=== PATIENT | female | born 1950 | race African-American/Black ===

== ENCOUNTER 2017-09-16 16:00 | Emergency (ER) | payer MEDICARE, MEDICAID, OTHER ==
[2017-09-16] MEDS: HYDROcodone/APAP 5/325MG 1 TAB TABLET PO ×2 (16:31)
== END 2017-09-16 17:13 | disposition home or self-care (01) ==
LOC: ER 16:00
DX: M17.11 Unilateral primary osteoarthritis, right knee (principal); I10 Essential (primary) hypertension; Z90.49 Acquired absence of other specified parts of digestive tract; Z90.710 Acquired absence of both cervix and uterus
CPT/HCPCS: 73562; 99284

== ENCOUNTER → 2018-05-17 | Outpatient (CLI) | payer MEDICAID, MEDICARE ==
[2017-09-16 16:20] VITALS: BP 157/72
[~2018-05-17] MED LIST: HYDR-971 PO; LOSA50TA7 PO
--- NOTE | 2018-05-17 15:31 | RAD ---
DATE: 05/17/2018 EXAM: MAMMO TERRELL SCREENING BILATERAL HISTORY: Previous right breast cancer COMPARISON: 05/04/2017 This study was interpreted with the benefit of Computerized Aided Detection (CAD). Breast Density: SCATTERED The breast parenchyma shows scattered fibroglandular densities. Breast parenchyma level B. FINDINGS: 2-D and 3-D tomosynthesis imaging was performed in CC and MLO projections. The breasts are asymmetric due to posttherapeutic change on the right. The right breast is smaller with scattered increased densities and mild skin thickening. Mild architectural distortion laterally on the right is presumably postsurgical. No new or enlarging breast densities are seen. There is an unchanged smooth benign-appearing nodule present posterolaterally on the left. Scattered benign type calcifications are present. No suspicious microcalcifications have developed. IMPRESSION: Stable mammograms without evidence of malignancy. BI-RADS CATEGORY: 2 BENIGN FINDING(S) RECOMMENDED FOLLOW-UP: 12M 12 MONTH FOLLOW-UP PQRS compliance statement: Patient information was entered into a reminder system with a target due date for the next mammogram. Mammography is a sensitive method for finding small breast cancers, but it does not detect them all and is not a substitute for careful clinical examination. A negative mammogram does not negate a clinically suspicious finding and should not result in delay in biopsying a clinically suspicious abnormality. "Our facility is accredited by the [employer] Mammography Program."
== END | disposition home or self-care (01) ==
LOC: MAMMO 08:12
DX: Z12.31 Encounter for screening mammogram for malignant neoplasm of breast (principal)
CPT/HCPCS: 77063; 77067

== ENCOUNTER → 2018-06-01 | Outpatient (CLI) | payer OTHER ==
[2017-09-16 16:20] VITALS: BP 157/72
--- NOTE | 2018-06-01 16:56 | KCIC ---
MRI of the lumbar spine without contrast 06/01/2018 CLINICAL HISTORY: Low back pain which radiates down the right leg for the last 2 years. TECHNIQUE: Unenhanced T1-weighted and T2-weighted sagittal and axial and inversion recovery sagittal images of the lumbar spine were obtained. FINDINGS: Very mild S-shaped curvature of the thoracolumbar spine is seen. Mild to moderate anterolisthesis of L4 in relation to L5 is seen. Degenerative signal changes are seen involving all of the disks of the lumbar spine. Degenerative signal changes are seen within the marrow surrounding these discs. Loss of height of the L4-5 and L5-S1 discs is noted. The conus medullaris is normal morphology, position, and signal characteristics. At the L1-2 and L2-3 disc spaces there are mild generalized disc bulges. Degenerative changes are seen involving the facet joints bilaterally. There is mild ligament flavum hypertrophy bilaterally. These findings do not result in significant central spinal canal or neural foraminal stenosis. At the L3-4 disc space there is a mild to moderate generalized disc bulge. Degenerative changes are seen involving the facet joints bilaterally. There is moderate ligamentum flavum hypertrophy bilaterally. These findings when combined result in mild to moderate central spinal canal stenosis. No neural foraminal stenosis is seen. At the L4-5 disc space there is a moderate generalized disc bulge. Degenerative changes are seen involving the facet joints bilaterally. There is moderate to severe ligamentum flavum hypertrophy bilaterally. These findings when combined result in severe central spinal canal stenosis. Moderate bilateral neural foraminal stenosis is seen. At the L5-S1 disc space there is a moderate generalized disc bulge. Degenerative changes are seen involving the facet joints bilaterally. There is mild ligament flavum hypertrophy bilaterally. These findings when combined do not result in significant central spinal canal stenosis. Moderate bilateral neural foraminal stenosis is seen. IMPRESSION: The changes of degenerative disc disease are seen involving the lumbar spine. These findings result in mild to moderate central spinal canal stenosis at L3-4 and severe central spinal canal stenosis at L4-5. Moderate bilateral neural foraminal stenosis is seen at L4-5 and L5-S1. Electronically signed by: Bhupendra Hammer MD (06/01/2018 4:53 PM) [id number]
== END | disposition home or self-care (01) ==
LOC: KCIC MRI 15:50
DX: M51.36 Other intervertebral disc degeneration, lumbar region (principal); M48.061 Spinal stenosis, lumbar region without neurogenic claudication; M48.07 Spinal stenosis, lumbosacral region
CPT/HCPCS: 72148